=== PATIENT | male | born 1985 | race Two or more races ===

== ENCOUNTER 2025-03-12 14:55 | Emergency (ER) | payer BC, SELFPAY ==
[2025-03-12 15:17] VITALS: BP 130/86; PULSE 82; RESP 16; TEMP 36.8; O2SAT 98; BMI 27.1
[2025-03-12 15:23] VITALS: PULSE 94; RESP 16
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
[2025-03-12] MEDS: KETOROLAC INJ 60 MG/2 ML VIAL IM (19:25)
[2025-03-12] MEDS: ACETAMINOPHEN w/COD 300-30 TABLET 2 TAB PO (19:25)
== END 2025-03-12 19:38 | disposition home or self-care (01) ==
PROVIDERS: Emergency Provider Emergency Medicine; PCP Family Medicine
DX: R51.9 Headache, unspecified (principal); M54.2 Cervicalgia; M54.50 Low back pain, unspecified; M25.512 Pain in left shoulder; M25.511 Pain in right shoulder
CPT/HCPCS: 70450; 70486; 71250; 72125; 74176; 96372; 99284; J1885; A9270